=== PATIENT | female | born 1945 | race African-American/Black ===

== ENCOUNTER 2024-12-05 21:12 | Inpatient (IN) | payer OTHER ==
[~2024-12-05] VITALS: Ht 160 cm; Wt 39.9 kg
[2024-12-05 21:18] VITALS: O2SAT 96
[2024-12-05] MEDS: VANCOMYCIN 1G PREMIX 200 ML IV ONE (21:30)
[2024-12-05] MEDS: SODIUM CHLORIDE 0.9% (SEPSIS BOLUS) IV ONE ×2 (22:15→22:16)
[2024-12-05] MEDS: MEROPENEM 1G/100ML 100 ML IV ONE (22:37)
[2024-12-05 22:50] LABS: BASOPHILS % 0.2 % (0.0-2.0); EOSINOPHILS % 0.1 % (0.0-5.0); HEMATOCRIT. 33.4 % (36.0-48.0); HEMOGLOBIN. 11.3 g/dL (12.0-16.0); LYMPHOCYTES % 23.4 % (20.0-50.0); MEAN PLATELET VOLUME 9.0 fl (7.4-10.4); MONOCYTES % 6.6 % (2.0-8.0); NEUTROPHILS % 69.7 % (40.0-76.0); PLATELET 214 x1000/uL (130-400); RED BLOOD CELL COUNT 3.54 mill/uL (4.2-5.4); RED CELL DISTRIBUTION WIDTH 14.8 % (11.6-14.6)
[2024-12-05 23:04] LABS: INR 1.1
[2024-12-06] VITALS (76 sets, daily range): BP systolic 75–164; BP diastolic 46–135; PULSE 53–78; RESP 0–21; TEMP 36.4–36.7; O2SAT 91–100
[2024-12-06] MEDS: VANCOMYCIN 1000MG/250ML 250 ML IV NR (00:05)
[2024-12-06 00:06] LABS: CREATININE 3.2 mg/dL (0.6-1.0)
[2024-12-06 00:07] LABS: UREA NITROGEN BLOOD 36 mg/dL (9-23)
[2024-12-06 00:09] LABS: ASPARTATE AMINOTRANSFERASE 20 IU/L (<34); BILIRUBIN DIRECT 0.3 mg/dL (<=3.0); BILIRUBIN TOTAL 0.6 mg/dL (0.1-1.0); PROTEIN TOTAL 4.9 g/dL (6.0-8.3)
[2024-12-06] MEDS: NOREPINEPHRINE 8MG/250ML PMX 250 ML IV PRN (00:41)
[2024-12-06] MEDS ORDERED: ONDANSETRON HCL 4MG/2ML INJ IV PRN (01:30)
[2024-12-06] MEDS ORDERED: IPRATROPIUM/ALBUTEROL 0.5-3(2.5)MG/3ML NEB HHN PRN (01:30)
[2024-12-06] MEDS ORDERED: LORAZEPAM 0.5MG TABLET PO PRN (01:30)
[2024-12-06] MEDS ORDERED: ACETAMINOPHEN 325MG TABLET PO PRN ×2 (01:30)
[2024-12-06] MEDS ORDERED: MEROPENEM 1,000 MG in SODIUM CHLORIDE 0.9% 100 ML IV SCH (01:30)
[2024-12-06] MEDS ORDERED: GUAIFENESIN 200MG/10ML SUGAR FREE UDC PO PRN (01:30)
[2024-12-06] MEDS ORDERED: DOCUSATE SODIUM 100MG CAPSULE PO PRN (01:30)
[2024-12-06] MEDS: DEXT 5%/0.45% NACL 1000ML 1,000 ML IV SCH ×2 (02:58→08:53)
[2024-12-06] MEDS ORDERED: GABA-1180 PO (06:06)
[2024-12-06] MEDS ORDERED: CYAN-117 PO (06:06)
[2024-12-06] MEDS ORDERED: TRAZ150T78 MT (06:06)
[2024-12-06] MEDS ORDERED: ATEN-42 MT (06:06)
[2024-12-06] MEDS ORDERED: PANT40TA51 MT (06:06)
[2024-12-06] MEDS ORDERED: ATOR-2 MT (06:06)
[2024-12-06] MEDS ORDERED: CAPM200T PO (06:06)
[2024-12-06] MEDS ORDERED: LISI40TA13 MT (06:06)
[2024-12-06] MEDS: ENOXAPARIN 30MG/0.3ML SYR SUBCUT SCH (08:52)
[2024-12-06] MEDS: PANTOPRAZOLE SODIUM 40 MG/VIAL IV SCH (08:53)
[2024-12-06] MEDS: MIDODRINE HCL 5MG TABLET PO SCH ×2 (08:53→21:42)
[2024-12-06 10:26] LABS: BASOPHILS % 0.3 % (0.0-2.0); EOSINOPHILS % 0.4 % (0.0-5.0); HEMATOCRIT. 37.5 % (36.0-48.0); HEMOGLOBIN. 12.7 g/dL (12.0-16.0); LYMPHOCYTES % 28.4 % (20.0-50.0); MEAN PLATELET VOLUME 8.5 fl (7.4-10.4); MONOCYTES % 8.5 % (2.0-8.0); NEUTROPHILS % 62.4 % (40.0-76.0); PLATELET 210 x1000/uL (130-400); RED BLOOD CELL COUNT 3.79 mill/uL (4.2-5.4); RED CELL DISTRIBUTION WIDTH 14.7 % (11.6-14.6)
[2024-12-06 10:41] LABS: CREATININE 3.1 mg/dL (0.6-1.0); TROPONIN I HIGH SENSITIVITY 28 ng/L (3.0-34)
[2024-12-06 10:42] LABS: UREA NITROGEN BLOOD 31 mg/dL (9-23)
[2024-12-06 10:44] LABS: PHOSPHORUS 2.7 mg/dL (2.5-4.9)
[2024-12-06 11:43] LABS: HEPATITIS C AB NON REACTIVE (Neg) (Negative)
[2024-12-06] MEDS ORDERED: CAPM200T (13:20)
[2024-12-06] MEDS: MEROPENEM 500MG/50ML IV SCH (21:07)
[2024-12-06] MEDS: MULTIVITAMINS,THER W-MINERALS TABLET PO SCH (21:07)
[2024-12-06] MEDS: MIRTAZAPINE 15MG TABLET PO SCH (21:07)
[2024-12-06 22:32] LABS: CLARITY URINE CLEAR (CLEAR); COLOR URINE YELLOW (YELLOW); GLUCOSE URINE NEGATIVE (NEGATIVE); KETONES URINE NEGATIVE (NEGATIVE); LEUKOCYTE ESTERASE URINE NEGATIVE (NEGATIVE); NITRITE URINE NEGATIVE (NEGATIVE); OCCULT BLOOD URINE NEGATIVE (NEGATIVE); PH URINE 5.0 (4.5-8.0); PROTEIN URINE NEGATIVE (NEGATIVE); SPECIFIC GRAVITY URINE 1.007 (1.005-1.030); UROBILINOGEN URINE 0.2 E.U./dL (0.2-1.0)
[2024-12-07 04:00] VITALS: BP 94/46; PULSE 59; RESP 18; TEMP 35.9; O2SAT 99
[2024-12-07] MEDS ORDERED: ATEN-42 PO (06:56)
[2024-12-07] MEDS ORDERED: MIRT-89 PO (06:57)
[2024-12-07] MEDS ORDERED: CAPM200T PO (06:58)
[2024-12-07 07:13] LABS: UREA NITROGEN BLOOD 27 mg/dL (9-23)
[2024-12-07 07:15] LABS: PHOSPHORUS 1.6 mg/dL (2.5-4.9)
[2024-12-07 07:21] LABS: BASOPHILS % 0.4 % (0.0-2.0); EOSINOPHILS % 1.0 % (0.0-5.0); HEMATOCRIT. 30.5 % (36.0-48.0); HEMOGLOBIN. 10.4 g/dL (12.0-16.0); LYMPHOCYTES % 35.4 % (20.0-50.0); MEAN PLATELET VOLUME 8.7 fl (7.4-10.4); MONOCYTES % 9.9 % (2.0-8.0); NEUTROPHILS % 53.3 % (40.0-76.0); PLATELET 185 x1000/uL (130-400); RED BLOOD CELL COUNT 3.23 mill/uL (4.2-5.4); RED CELL DISTRIBUTION WIDTH 14.6 % (11.6-14.6)
[2024-12-07 07:29] LABS: CREATININE 2.1 mg/dL (0.6-1.0)
[2024-12-07 08:00] VITALS: BP 106/42; PULSE 61; RESP 17; TEMP 36.5; O2SAT 100
[2024-12-07] MEDS: MAGNESIUM 2 G PREMIX 50 ML IV ONE (10:56)
[2024-12-07] MEDS: VANCOMYCIN 750MG PREMIX 150 ML IV SCH (11:53)
[2024-12-07 12:00] VITALS: BP 104/43; PULSE 60; RESP 17; TEMP 36.6; O2SAT 100
[2024-12-07] MEDS ORDERED: *PATIENT'S OWN MEDICATION STORAGE XX SCH (13:15)
[2024-12-07] MEDS: POTASSIUM PHOSPHATE 15 MMOL in DEXT 5% WATER 245 ML IV ONE (14:25)
[2024-12-07] MEDS: [UNRECOGNIZED DRUG - OTHER] PO SCH (14:27)
[2024-12-07 16:00] VITALS: BP 109/57; PULSE 60; RESP 18; TEMP 36.7; O2SAT 97
[2024-12-07] MEDS ORDERED: MIRTAZAPINE 15MG TABLET PO SCH (21:00)
== END 2024-12-07 20:34 | disposition short-term general hospital (02) | DRG 640 ==
LOC: ER 21:12 → MICUSO 23:49 → EDBEDREQTM 23:54 → EDBEDREQ 23:54 → ENRESERV 12-06 00:13 → CANRESERV 12-06 00:13 → EDBEDREQSVC 12-06 00:24 → ENRESERV 12-06 01:23 → MICUNO 12-06 19:52 → 8WST 12-06 22:39
PROVIDERS: ADMIT Hospitalist; ATTEND Hospitalist
DX: R62.7 Adult failure to thrive (principal); E43 Unspecified severe protein-calorie malnutrition; G92.8 Other toxic encephalopathy; N17.9 Acute kidney failure, unspecified; Z68.1 Body mass index [BMI] 19.9 or less, adult; I12.9 Hypertensive chronic kidney disease with stage 1 through stage 4 chronic kidney disease, or unspecified chronic kidney disease; N18.9 Chronic kidney disease, unspecified; E11.22 Type 2 diabetes mellitus with diabetic chronic kidney disease; D64.9 Anemia, unspecified; E78.5 Hyperlipidemia, unspecified; E83.39 Other disorders of phosphorus metabolism; E83.42 Hypomagnesemia; E11.65 Type 2 diabetes mellitus with hyperglycemia; E86.9 Volume depletion, unspecified; Z74.01 Bed confinement status; Z79.899 Other long term (current) drug therapy; Z85.118 Personal history of other malignant neoplasm of bronchus and lung; Z85.3 Personal history of malignant neoplasm of breast; Z88.0 Allergy status to penicillin
CPT/HCPCS: 36415; 71045; 76770; 80048; 80076; 80202; 81003; 83605; 83735; 84100; 84134; 84145; 84484; 85025; 86705; 87340; 93005; 93970; 97162; 99285; J1650; J2185; J2470; J3373; J3475; J3490; J7030; J7060